=== PATIENT | female | born 1960 | race Caucasian/White ===

== ENCOUNTER 2022-11-14 09:56 | Emergency (ER) | payer OTHER ==
[~2022-11-14] VITALS: Ht 157.5 cm; Wt 72.6 kg
[2022-11-14] MEDS ORDERED: METFORMIN HCL500 M3 (10:46)
[2022-11-14] MEDS ORDERED: SYNTHROID137 MCG (10:46)
[2022-11-14] MEDS ORDERED: SIMETHICONE80 MG (10:46)
[2022-11-14] MEDS ORDERED: COZAAR50 MG (10:46)
== END 2022-11-14 14:24 | disposition home or self-care (01) ==
LOC: ER 09:56
DX: R20.2 Paresthesia of skin (principal); R20.0 Anesthesia of skin; Z88.8 Allergy status to other drugs, medicaments and biological substances; Z91.013 Allergy to seafood; R51.9 Headache, unspecified